=== PATIENT | male | born 1990 | race Caucasian/White ===

== ENCOUNTER 2023-09-02 23:50 | Observation (INO) | payer OTHER ==
[2023-09-02 23:54] VITALS: BMI 34.7
[2023-09-03] MEDS ORDERED: LIDOCAINE 5% TOPICAL PATCH TP ONE (00:30)
[2023-09-03] MEDS ORDERED: IBUPROFEN 600 MG TABLET (FP) PO ONE ×2 (00:34→00:43)
[2023-09-03] MEDS ORDERED: LIDOCAINE 4% PATCH TP ONE (00:43)
[2023-09-03 01:07] LABS: BASO % 0.3 % (0-2.0); HEMATOCRIT 43.7 % (35.4-49); HEMOGLOBIN 14.7 GM/dL (11.7-16.9); LYMPH % 12.1 % (8-40); MCH 27.7 pg (25.7-33.7); MCHC 33.8 g/dl (32.0-35.9); MEAN CELL VOLUME 82.1 fl (80-96); MEAN PLT VOLUME 8.9 fl (7.5-11.1); MONO % 10.1 % (3.8-10.2); NEUT % 77.5 % (42.8-82.8); PLATELET COUNT 202 10^3/uL (134-434); RBC 5.31 M/mm3 (4.00-5.60); RDW 12.6 % (11.9-15.9); WHITE BLOOD COUNT 13.5 K/mm3 (4.0-10.0)
[2023-09-03 01:18] LABS: EPI CELLS 3 /uL (0-25.1); HYALINE CASTS 0 /uL (0-3.1); URINE APPEARANCE Error; URINE BACTERIA 1 /uL (0-1359); URINE BILIRUBIN 1+ (NEGATIVE); URINE COLOR DK YELLOW; URINE GLUCOSE (UA) NEGATIVE (NEGATIVE); URINE KETONE TRACE (NEGATIVE); URINE LEUK ESTERASE TRACE (NEGATIVE); URINE NITRITE NEGATIVE (NEGATIVE); URINE PROTEIN 1+ (NEGATIVE); URINE RBC 62 /uL (0-23.9); URINE WBC 12 /uL (0-25.8)
[2023-09-03 01:41] LABS: CALCIUM 8.8 mg/dL (8.5-10.1); POTASSIUM 4.4 mmol/L (3.5-5.1)
[2023-09-03 01:42] LABS: BLOOD UREA NITROGEN 8.8 mg/dL (7-18)
[2023-09-03 01:46] LABS: TOT PROT 8.4 g/dl (6.4-8.2)
[2023-09-03] MEDS ORDERED: CLINDAMYCIN 600MG PREMIX IVPB 600 MG/50 ML BAG IVPB ONE ×2 (01:59→02:01)
[2023-09-03] MEDS ORDERED: ACETAMINOPHEN 1000 MG/100 ML BAG IVPB ONE (02:05)
[2023-09-03] MEDS ORDERED: ACETAMINOPHEN INJECTION 100 ML IVPB ONE (02:15)
[2023-09-03 05:17] LABS: BILIRUBIN,DIRECT 0.6 mg/dL (0.0-0.2)
[2023-09-03 05:51] LABS: METHADONE, UR NEGATIVE (NEGATIVE); URINE BENZODIAZEPINES NEGATIVE (NEGATIVE)
[2023-09-03 05:52] LABS: PHENCYCLIDINE,URINE NEGATIVE (NEGATIVE); URINE BARBITURATES NEGATIVE (NEGATIVE)
[2023-09-03] MEDS ORDERED: SODIUM CHLORIDE 0.9% 500 ML INFUS.BAG IV ONE (05:55)
[2023-09-03] MEDS ORDERED: PENICILLIN G BENZATHINE 1,200,000 UNIT/2 ML PFS IM ONE (05:57)
[2023-09-03 06:06] LABS: COCAINE, UR NEGATIVE (NEGATIVE); OPIATES, URI POSITIVE (NEGATIVE); URINE AMPHETAMINES NEGATIVE (NEGATIVE)
[2023-09-03 06:16] LABS: HEMATOCRIT 41.4 % (35.4-49); HEMOGLOBIN 14.1 GM/dL (11.7-16.9); MCH 28.2 pg (25.7-33.7); MEAN CELL VOLUME 83.1 fl (80-96); MEAN PLT VOLUME 9.4 fl (7.5-11.1); PLATELET COUNT 190 10^3/uL (134-434); RBC 4.98 M/mm3 (4.00-5.60); RDW 12.7 % (11.9-15.9); WHITE BLOOD COUNT 13.1 K/mm3 (4.0-10.0)
[2023-09-03 06:31] LABS: POTASSIUM 3.4 mmol/L (3.5-5.1)
[2023-09-03 06:33] LABS: CALCIUM 8.7 mg/dL (8.5-10.1)
[2023-09-03 06:34] LABS: ALBUMIN 3.7 g/dl (3.4-5.0)
[2023-09-03 06:35] LABS: BLOOD UREA NITROGEN 9.9 mg/dL (7-18)
[2023-09-03 06:36] LABS: BILIRUBIN,DIRECT 0.6 mg/dL (0.0-0.2)
[2023-09-03 06:37] LABS: CREATININE 0.9 mg/dL (0.55-1.3)
[2023-09-03 06:38] LABS: BILIRUBIN,TOTAL 2.1 mg/dL (0.2-1)
[2023-09-03 07:30] LABS: HIV INTERPRETATION NEGATIVE (NEGATIVE)
[2023-09-03] MEDS: ENOXAPARIN NA (PORCINE) 40 MG/0.4 ML DISP.SYRIN SQ SCH (09:55)
[2023-09-03] MEDS ORDERED: ONDANSETRON 4 MG/2 ML VIAL IVPUSH PRN (10:44)
[2023-09-03] MEDS ORDERED: SODIUM CHLORIDE 1,000 ML IV SCH (10:45)
[2023-09-03] MEDS: ACETAMINOPHEN 1000 MG/100 ML BAG IVPB PRN ×2 (10:53→21:30)
[2023-09-03] MEDS ORDERED: LORazepam 1 MG TABLET PO ONE (11:15)
[2023-09-03] MEDS ORDERED: POTASSIUM CHLORIDE ORAL LIQUID 20 MEQ/15 ML PO ONE (11:15)
[2023-09-03] MEDS ORDERED: CIPROFLOXACIN 400 MG/D5W 400 MG/200 ML IVPB IVPB ONE (12:00)
[2023-09-03] MEDS ORDERED: LIDOCAINE PATCH REMOVAL MC ONE (13:00)
[2023-09-03] MEDS: PIPERACILLIN/TAZOB 3.375 GM 3.375 GM in DEXTROSE 5%-WATER - 50 ML IVPB SCH ×2 (14:17→17:18)
[2023-09-04] MEDS: PIPERACILLIN/TAZOB 3.375 GM 3.375 GM in DEXTROSE 5%-WATER - 50 ML IVPB SCH ×2 (01:52→09:42)
[2023-09-04 06:04] VITALS: RESP 20
[2023-09-04] MEDS: ENOXAPARIN NA (PORCINE) 40 MG/0.4 ML DISP.SYRIN SQ SCH (09:43)
[2023-09-04 09:47] VITALS: BP 134/64; PULSE 89; TEMP 99
[2023-09-04 12:56] LABS: HEMATOCRIT 39.6 % (35.4-49); HEMOGLOBIN 13.6 GM/dL (11.7-16.9); MCH 28.4 pg (25.7-33.7); MCHC 34.3 g/dl (32.0-35.9); MEAN CELL VOLUME 82.7 fl (80-96); MEAN PLT VOLUME 9.6 fl (7.5-11.1); PLATELET COUNT 199 10^3/uL (134-434); RBC 4.79 M/mm3 (4.00-5.60); RDW 12.7 % (11.9-15.9); WHITE BLOOD COUNT 9.7 K/mm3 (4.0-10.0)
[2023-09-04 13:11] LABS: POTASSIUM 3.8 mmol/L (3.5-5.1)
[2023-09-04 13:13] LABS: ALBUMIN 3.4 g/dl (3.4-5.0); CALCIUM 8.4 mg/dL (8.5-10.1)
[2023-09-04 13:14] LABS: ALBUMIN 3.4 g/dl (3.4-5.0); BLOOD UREA NITROGEN 9.2 mg/dL (7-18)
[2023-09-04 13:15] LABS: BILIRUBIN,DIRECT 0.2 mg/dL (0.0-0.2)
[2023-09-04 13:17] LABS: BILIRUBIN,TOTAL 0.8 mg/dL (0.2-1); CREATININE 0.8 mg/dL (0.55-1.3); TOT PROT 7.7 g/dl (6.4-8.2)
[2023-09-04 13:19] LABS: BILIRUBIN,TOTAL 1.2 mg/dL (0.2-1); TOT PROT 7.6 g/dl (6.4-8.2)
== END 2023-09-04 12:29 | disposition left against medical advice (07) ==
LOC: JER 23:50 → JERBED 09-03 02:10 → UNDOADMOB 09-03 02:10 → OBSVTOIN 09-03 04:48 → INTOOBSV 09-03 04:48 → JERBED 09-03 07:08 → J8W 09-03 07:08 → JERBED 09-03 15:16 → J8W 09-03 15:16
PROVIDERS: ADMIT Internal Medicine; ATTEND Internal Medicine
PROC: 3E03329 Introduction of Other Anti-infective into Peripheral Vein, Percutaneous Approach (ICD-10-PCS; principal; 2023-09-03)
PROC: 3E033NZ Introduction of Analgesics, Hypnotics, Sedatives into Peripheral Vein, Percutaneous Approach (ICD-10-PCS; 2023-09-03)
PROC: 3E023GC Introduction of Other Therapeutic Substance into Muscle, Percutaneous Approach (ICD-10-PCS; 2023-09-03)
PROC: 3E033GC Introduction of Other Therapeutic Substance into Peripheral Vein, Percutaneous Approach (ICD-10-PCS; 2023-09-03)
PROC: 3E0337Z Introduction of Electrolytic and Water Balance Substance into Peripheral Vein, Percutaneous Approach (ICD-10-PCS; 2023-09-03)
DX: J02.0 Streptococcal pharyngitis (principal); R94.5 Abnormal results of liver function studies; N05.9 Unspecified nephritic syndrome with unspecified morphologic changes; E80.6 Other disorders of bilirubin metabolism; R68.83 Chills (without fever); F17.210 Nicotine dependence, cigarettes, uncomplicated; R07.89 Other chest pain; R79.89 Other specified abnormal findings of blood chemistry; R00.0 Tachycardia, unspecified
CPT/HCPCS: 0241U-QW; 36415; 71046-TC-FY; 74176-TC; 74181-TC; 76705-TC; 80048; 80053; 80076; 80307; 81003; 82248; 82550; 82728; 82977; 83540; 83550; 83605; 85025; 85027; 86704; 86706; 86707; 86708; 86803; 87040; 87086; 87340; 87350; 87389; 87651; 93005; 93010; 96361; 96365; 96367; 96372; 96375; 96376; 99285-25; G0378